=== PATIENT | male | born 1950 | race Caucasian/White ===

== ENCOUNTER 2021-06-16 09:51 | Emergency (ER) | payer MEDICARE, OTHER ==
[2021-06-16 09:58] VITALS: TEMP 97; BMI 31.6
[2021-06-16] MEDS ORDERED: FAMOTIDINE 20 MG/50 ML IVPB 20 MG/50 ML MG IVPB ONE ×2 (11:21→11:34)
[2021-06-16] MEDS ORDERED: ONDANSETRON 4 MG/2 ML VIAL IVPUSH ONE (11:21)
[2021-06-16] MEDS ORDERED: SUCRALFATE 1 GM TABLET (FP) PO ONE (11:21)
[2021-06-16] MEDS ORDERED: MAG HYDROX/AL HYDROX/SIMETH 30 ML UNIT-DOSE CUP PO ONE (11:21)
[2021-06-16] MEDS ORDERED: ONDANSETRON 4 MG/2 ML VIAL ONE (11:34)
[2021-06-16] MEDS ORDERED: SUCRALFATE 1 GM TABLET (FP) ONE (11:34)
[2021-06-16] MEDS ORDERED: MAG HYDROX/AL HYDROX/SIMETH 30 ML UNIT-DOSE CUP ONE (11:34)
[2021-06-16] MEDS ORDERED: LACTATED RINGERS SOLUTION 1000 ML INFUS.BAG IV ONE (12:17)
[2021-06-16 13:08] LABS: BASO % 0.4 % (0-2.0); EOS % 1.1 % (0-4.5); HEMATOCRIT 42.2 % (35.4-49); HEMOGLOBIN 14.3 GM/dL (11.7-16.9); LYMPH % 17.6 % (8-40); MCH 29.2 pg (25.7-33.7); MCHC 33.8 g/dl (32.0-35.9); MEAN CELL VOLUME 86.2 fl (80-96); MEAN PLT VOLUME 9.3 fl (7.5-11.1); MONO % 6.2 % (3.8-10.2); NEUT % 74.7 % (42.8-82.8); PLATELET COUNT 184 10^3/uL (134-434); RBC 4.89 M/mm3 (4.00-5.60); RDW 14.1 % (11.9-15.9); WHITE BLOOD COUNT 8.4 K/mm3 (4.0-10.0)
[2021-06-16 13:28] LABS: CHLORIDE 103 mmol/L (98-107); SODIUM 142 mmol/L (136-145)
[2021-06-16 13:31] LABS: ANION GAP 10 MMOL/L (8-16); CALCIUM 10.1 mg/dL (8.5-10.1); CO2 29 mmol/L (21-32); GLUCOSE,RANDOM 207 mg/dL (74-106); LIPASE 72 U/L (73-393)
[2021-06-16 13:33] LABS: MAGNESIUM 2.2 mg/dL (1.8-2.4)
[2021-06-16 13:34] LABS: CREATININE 2.1 mg/dL (0.55-1.3); SGOT/AST 25 U/L (15-37); SGPT/ALT 52 U/L (13-61)
[2021-06-16 13:37] LABS: ALK PHOS 56 U/L (45-117); BILIRUBIN,TOTAL 0.8 mg/dL (0.2-1); TOT PROT 8.2 g/dl (6.4-8.2)
[2021-06-16 16:26] VITALS: BP 184/81; PULSE 77
== END 2021-06-16 17:37 | disposition home or self-care (01) ==
LOC: JER 09:51
PROC: 3E033NZ Introduction of Analgesics, Hypnotics, Sedatives into Peripheral Vein, Percutaneous Approach (ICD-10-PCS; principal; 2021-06-16)
PROC: 3E033GC Introduction of Other Therapeutic Substance into Peripheral Vein, Percutaneous Approach (ICD-10-PCS; 2021-06-16)
DX: R10.13 Epigastric pain (principal); R11.2 Nausea with vomiting, unspecified
CPT/HCPCS: 36415; 71045-TC-FY; 74177-TC; 80053; 83605; 83690; 83735; 84484; 85025; 93005; 93010; 96365; 96375; 99284-25; C9803; Q9967; U0003; U0005

== ENCOUNTER 2024-02-06 00:47 | Inpatient (IN) | payer MEDICARE, OTHER ==
[2024-02-06] MEDS: SODIUM CHLORIDE 0.9% 500 ML INFUS.BAG IV ONE (02:36)
[2024-02-06 02:45] LABS: BASO % 0.7 % (0-2.0); EOS % 0.9 % (0-4.5); HEMATOCRIT 29.8 % (35.4-49); HEMOGLOBIN 9.7 GM/dL (11.7-16.9); LYMPH % 11.9 % (8-40); MCH 27.4 pg (25.7-33.7); MCHC 32.6 g/dl (32.0-35.9); MEAN PLT VOLUME 8.7 fl (7.5-11.1); MONO % 6.9 % (3.8-10.2); NEUT % 79.6 % (42.8-82.8); PLATELET COUNT 235 10^3/uL (134-434); RBC 3.55 M/mm3 (4.00-5.60); RDW 16.9 % (11.9-15.9); WHITE BLOOD COUNT 12.5 K/mm3 (4.0-10.0)
[2024-02-06 02:53] LABS: INR 1.21 (0.83-1.09); PROTHROMBIN TIME (PATIENT) 13.6 SEC (9.7-13.0)
[2024-02-06 02:55] LABS: PH,URINE 5.5 (5.0-8.0); URINE APPEARANCE CLEAR; URINE BILIRUBIN NEGATIVE (NEGATIVE); URINE COLOR YELLOW; URINE GLUCOSE (UA) 3+ (NEGATIVE); URINE KETONE NEGATIVE (NEGATIVE); URINE LEUK ESTERASE 1+ (NEGATIVE); URINE NITRITE NEGATIVE (NEGATIVE); URINE PROTEIN 1+ (NEGATIVE); URINE UROBILINOGEN 0.2 mg/dL (0.2-1.0)
[2024-02-06] MEDS ORDERED: ACETAMINOPHEN INJECTION 100 ML IVPB ONE (02:59)
[2024-02-06] MEDS ORDERED: CEFTRIAXONE 1 GM/50 ML BAG ONE (03:00)
[2024-02-06 03:03] LABS: CHLORIDE 104 mmol/L (98-107); POTASSIUM 4.5 mmol/L (3.5-5.1); SODIUM 136 mmol/L (136-145)
[2024-02-06 03:05] LABS: ALBUMIN 2.8 g/dl (3.4-5.0); CALCIUM 8.6 mg/dL (8.5-10.1)
[2024-02-06 03:06] LABS: ANION GAP 7 mmol/L (4-13); BLOOD UREA NITROGEN 30.3 mg/dL (7-18); CO2 25 mmol/L (21-32); MAGNESIUM 2.5 mg/dL (1.8-2.4)
[2024-02-06] MEDS: ACETAMINOPHEN 1000 MG/100 ML BAG IVPB ONE (03:07)
[2024-02-06 03:08] LABS: CREATININE 1.9 mg/dL (0.55-1.3); SGOT/AST 22 U/L (15-37)
[2024-02-06 03:09] LABS: SGPT/ALT 32 U/L (13-61)
[2024-02-06 03:10] LABS: BILIRUBIN,TOTAL 0.5 mg/dL (0.2-1); TOT PROT 6.5 g/dl (6.4-8.2)
[2024-02-06 03:11] LABS: ALK PHOS 97 U/L (45-117)
[2024-02-06 03:14] LABS: GLUCOSE,RANDOM 453 mg/dL (74-106)
[2024-02-06] MEDS ORDERED: INSULIN ASPART SLIDING SCALE (NOVOLOG) 1 VIAL SQ ONE ×4 (03:20→17:49)
[2024-02-06] MEDS: INSULIN REGULAR HUMAN 100 UNITS/ML *VIAL SQ ONE (03:27)
[2024-02-06 06:58] LABS: HEMATOCRIT 26.7 % (35.4-49); HEMOGLOBIN 8.7 GM/dL (11.7-16.9); MCH 27.6 pg (25.7-33.7); MCHC 32.6 g/dl (32.0-35.9); MEAN CELL VOLUME 84.5 fl (80-96); MEAN PLT VOLUME 8.7 fl (7.5-11.1); PLATELET COUNT 198 10^3/uL (134-434); RBC 3.16 M/mm3 (4.00-5.60); WHITE BLOOD COUNT 12.1 K/mm3 (4.0-10.0)
[2024-02-06 07:14] LABS: POTASSIUM 4.2 mmol/L (3.5-5.1)
[2024-02-06 07:16] LABS: CALCIUM 7.9 mg/dL (8.5-10.1)
[2024-02-06 07:17] LABS: BLOOD UREA NITROGEN 31.8 mg/dL (7-18); MAGNESIUM 2.4 mg/dL (1.8-2.4)
[2024-02-06 07:20] LABS: CREATININE 1.7 mg/dL (0.55-1.3); PHOSPHOROUS 4.3 mg/dL (2.5-4.9)
[2024-02-06] MEDS: INSULIN (NOVOLOG) ASPART 100 UNITS/ML 10ML VIAL SQ SCH (08:23)
[2024-02-06 08:28] LABS: EPI CELLS 0 /uL (0-25.1); HYALINE CASTS 0 /uL (0-3.1); URINE BACTERIA 1166 /uL (0-1359); URINE RBC 354 /uL (0-23.9); URINE WBC 513 /uL (0-25.8)
[2024-02-06 08:29] LABS: YEAST NONE SEEN (NEGATIVE)
[2024-02-06] MEDS: INSULIN (LEVEMIR) 100 UNITS/ML UNITS SQ ONE (10:40)
[2024-02-06] MEDS ORDERED: INSULIN (LEVEMIR) 100 UNITS/ML UNITS SQ ONE ×2 (10:47→10:49)
[2024-02-06] MEDS ORDERED: ENOXAPARIN NA (PORCINE) 40 MG/0.4 ML DISP.SYRIN SQ ONE (10:47)
[2024-02-06] MEDS: ENOXAPARIN NA (PORCINE) 40 MG/0.4 ML DISP.SYRIN SQ SCH (11:11)
[2024-02-06] MEDS ORDERED: ASPIRIN COATED 81 MG TABLET.EC ONE (11:55)
[2024-02-06] MEDS: ASPIRIN COATED 81 MG TABLET.EC PO SCH (11:56)
[2024-02-06] MEDS ORDERED: INSULIN (LEVEMIR) 100 UNITS/ML UNITS SQ SCH (22:00)
[2024-02-07] MEDS: ATORVASTATIN CA 40 MG TABLET (FP) PO SCH (00:29)
[2024-02-07] MEDS: INSULIN (LEVEMIR) 100 UNITS/ML UNITS SQ SCH (00:29)
[2024-02-07] MEDS: ACETAMINOPHEN 1000 MG/100 ML BAG IVPB PRN (02:07)
[2024-02-07] MEDS ORDERED: INSULIN (LEVEMIR) 100 UNITS/ML UNITS SQ SCH (07:00)
[2024-02-07 08:55] LABS: BASO % 0.3 % (0-2.0); EOS % 1.7 % (0-4.5); HEMATOCRIT 27.2 % (35.4-49); HEMOGLOBIN 8.7 GM/dL (11.7-16.9); LYMPH % 16.7 % (8-40); MCH 26.8 pg (25.7-33.7); MEAN CELL VOLUME 83.9 fl (80-96); MEAN PLT VOLUME 8.6 fl (7.5-11.1); MONO % 7.4 % (3.8-10.2); NEUT % 73.9 % (42.8-82.8); PLATELET COUNT 237 10^3/uL (134-434); RBC 3.24 M/mm3 (4.00-5.60); RDW 16.8 % (11.9-15.9); WHITE BLOOD COUNT 11.7 K/mm3 (4.0-10.0)
[2024-02-07 09:14] LABS: BLOOD UREA NITROGEN 28.9 mg/dL (7-18)
[2024-02-07 09:15] LABS: ALBUMIN 2.3 g/dl (3.4-5.0); CALCIUM 8.7 mg/dL (8.5-10.1)
[2024-02-07 09:18] LABS: CREATININE 1.7 mg/dL (0.55-1.3)
[2024-02-07 09:19] LABS: BILIRUBIN,TOTAL 0.5 mg/dL (0.2-1); TOT PROT 5.9 g/dl (6.4-8.2)
[2024-02-07] MEDS: CEFTRIAXONE 1 GM in DEXTROSE 5%-WATER - 50 ML IVPB SCH (09:55)
[2024-02-07] MEDS: LOSARTAN POTASSIUM 50 MG TABLET PO SCH (09:56)
[2024-02-07] MEDS: amLODIPine BESYLATE 5 MG TABLET (FP) PO SCH (09:56)
[2024-02-07] MEDS: HYDROCHLOROTHIAZIDE 25 MG TABLET (FP) PO SCH (09:56)
[2024-02-07] MEDS: EMPAGLIFLOZIN (JARDIANCE) 25 MG TABLET PO SCH (12:02)
[2024-02-07] MEDS ORDERED: DOCUSATE NA 100 MG/10 ML UNIT-DOSE CUPS PO PRN (13:08)
[2024-02-07] MEDS: SENNOSIDES 8.6MG TABLET (FP) PO SCH (13:37)
[2024-02-07] MEDS: POLYETHYLENE GLYCOL (HEALTHYLAX) 3350 17 GM PACKET PO SCH (13:37)
[2024-02-07] MEDS ORDERED: INSULIN ASPART SLIDING SCALE (NOVOLOG) 1 VIAL SQ ONE (18:11)
[2024-02-08] MEDS: INSULIN (LEVEMIR) 100 UNITS/ML UNITS SQ ONE (09:59)
[2024-02-08 11:29] LABS: BASO % 0.5 % (0-2.0); EOS % 2.3 % (0-4.5); HEMATOCRIT 28.3 % (35.4-49); HEMOGLOBIN 9.5 GM/dL (11.7-16.9); LYMPH % 11.4 % (8-40); MCH 27.7 pg (25.7-33.7); MCHC 33.5 g/dl (32.0-35.9); MEAN CELL VOLUME 82.7 fl (80-96); MEAN PLT VOLUME 8.6 fl (7.5-11.1); MONO % 7.5 % (3.8-10.2); NEUT % 78.3 % (42.8-82.8); PLATELET COUNT 284 10^3/uL (134-434); RBC 3.42 M/mm3 (4.00-5.60); WHITE BLOOD COUNT 10.5 K/mm3 (4.0-10.0)
[2024-02-08 11:52] LABS: ALBUMIN 2.5 g/dl (3.4-5.0); BLOOD UREA NITROGEN 25.2 mg/dL (7-18)
[2024-02-08 11:55] LABS: CREATININE 1.7 mg/dL (0.55-1.3)
[2024-02-08 11:57] LABS: BILIRUBIN,TOTAL 0.4 mg/dL (0.2-1); TOT PROT 6.6 g/dl (6.4-8.2)
[2024-02-08] MEDS: TAMSULOSIN HCL 0.4 MG CAP PO SCH (16:14)
[2024-02-08] MEDS: GABAPENTIN 300 MG CAPSULE PO PRN (16:21)
[2024-02-08 16:35] VITALS: BMI 30.2
[2024-02-08] MEDS: INSULIN (LEVEMIR) 100 UNITS/ML UNITS SQ SCH (21:00)
[2024-02-08] MEDS: MEROPENEM 1 GM in DEXTROSE 5%-WATER 100 ML IVPB SCH (21:03)
[2024-02-08] MEDS ORDERED: MEROPENEM 1 GM in DEXTROSE 5%-WATER 100 ML IVPB SCH (22:00)
[2024-02-08] MEDS: ACETAMINOPHEN 325 MG TABLET (FP) PO PRN (23:50)
[2024-02-09] MEDS: INSULIN (LEVEMIR) 100 UNITS/ML UNITS SQ SCH ×2 (06:06→21:30)
[2024-02-09 08:22] LABS: HEMATOCRIT 31.1 % (35.4-49); HEMOGLOBIN 10.2 GM/dL (11.7-16.9); MCH 27.4 pg (25.7-33.7); MCHC 32.9 g/dl (32.0-35.9); MEAN CELL VOLUME 83.1 fl (80-96); MEAN PLT VOLUME 8.8 fl (7.5-11.1); PLATELET COUNT 328 10^3/uL (134-434); RBC 3.74 M/mm3 (4.00-5.60); RDW 16.9 % (11.9-15.9); WHITE BLOOD COUNT 12.6 K/mm3 (4.0-10.0)
[2024-02-09 08:36] LABS: BLOOD UREA NITROGEN 27.7 mg/dL (7-18)
[2024-02-09 08:39] LABS: CREATININE 1.6 mg/dL (0.55-1.3)
[2024-02-09] MEDS: CLOPIDOGREL BISULFATE 75 MG TABLET (FP) PO SCH (09:52)
[2024-02-09] MEDS: PHENAZOPYRIDINE HCL 100 MG TABLET (FP) PO ONE (14:25)
[2024-02-09] MEDS: MEROPENEM 1 GM in DEXTROSE 5%-WATER 100 ML IVPB SCH (17:27)
[2024-02-09] MEDS: SODIUM CHLORIDE 1,000 ML IV STA (23:28)
[2024-02-09] MEDS ORDERED: SIMETHICONE 80 MG TAB.CHEW (FP) PO PRN (23:50)
[2024-02-10] MEDS: MINERAL OIL ENEMA 133 ML ENEMA RC ONE ×2 (05:13→05:28)
[2024-02-10 05:22] LABS: POTASSIUM 4.4 mmol/L (3.5-5.1)
[2024-02-10 05:23] LABS: CALCIUM 8.5 mg/dL (8.5-10.1)
[2024-02-10 05:24] LABS: BLOOD UREA NITROGEN 50.5 mg/dL (7-18)
[2024-02-10 18:47] LABS: HEMATOCRIT 32.8 % (35.4-49); HEMOGLOBIN 10.5 GM/dL (11.7-16.9); MEAN CELL VOLUME 84.3 fl (80-96); PLATELET COUNT 376 10^3/uL (134-434); RBC 3.89 M/mm3 (4.00-5.60); RDW 17.1 % (11.9-15.9); WHITE BLOOD COUNT 15.3 K/mm3 (4.0-10.0)
[2024-02-10 19:15] LABS: POTASSIUM 4.3 mmol/L (3.5-5.1)
[2024-02-10 19:22] LABS: ALBUMIN 2.8 g/dl (3.4-5.0); BLOOD UREA NITROGEN 52.6 mg/dL (7-18); CALCIUM 9.1 mg/dL (8.5-10.1); MAGNESIUM 3.1 mg/dL (1.8-2.4)
[2024-02-10 19:27] LABS: BILIRUBIN,TOTAL 0.4 mg/dL (0.2-1); TOT PROT 7.2 g/dl (6.4-8.2)
[2024-02-10 19:29] LABS: LACTIC ACID 2.3 mmol/L (0.4-2.0)
[2024-02-10] MEDS: DOCUSATE NA 100 MG/10 ML UNIT-DOSE CUPS PO SCH (21:55)
[2024-02-10] MEDS: SODIUM CHLORIDE 1,000 ML IV STA (23:05)
[2024-02-11] MEDS: SODIUM CHLORIDE 1,000 ML IV SCH (00:34)
[2024-02-11] MEDS: INSULIN (LEVEMIR) 100 UNITS/ML UNITS SQ SCH (06:34)
[2024-02-11 09:57] LABS: HEMATOCRIT 28.3 % (35.4-49); HEMOGLOBIN 9.1 GM/dL (11.7-16.9); MCH 27.2 pg (25.7-33.7); MCHC 32.2 g/dl (32.0-35.9); MEAN CELL VOLUME 84.4 fl (80-96); MEAN PLT VOLUME 9.1 fl (7.5-11.1); PLATELET COUNT 407 10^3/uL (134-434); RBC 3.35 M/mm3 (4.00-5.60); RDW 17.2 % (11.9-15.9); WHITE BLOOD COUNT 13.5 K/mm3 (4.0-10.0)
[2024-02-11 10:16] LABS: POTASSIUM 4.3 mmol/L (3.5-5.1)
[2024-02-11 10:32] LABS: TOT PROT 6.8 g/dl (6.4-8.2)
[2024-02-11 10:33] LABS: ALBUMIN 2.6 g/dl (3.4-5.0); CALCIUM 8.8 mg/dL (8.5-10.1)
[2024-02-11 10:34] LABS: BLOOD UREA NITROGEN 48.6 mg/dL (7-18)
[2024-02-11 10:36] LABS: CREATININE 1.9 mg/dL (0.55-1.3)
[2024-02-11 10:37] LABS: BILIRUBIN,TOTAL 0.7 mg/dL (0.2-1)
[2024-02-11] MEDS: LIDOCAINE 5% TOPICAL PATCH TP SCH (13:58)
[2024-02-11] MEDS ORDERED: INSULIN ASPART SLIDING SCALE (NOVOLOG) 1 VIAL SQ ONE (17:44)
[2024-02-11] MEDS: LIDOCAINE PATCH REMOVAL MC SCH (22:44)
[2024-02-12 10:13] LABS: HEMATOCRIT 28.2 % (35.4-49); HEMOGLOBIN 9.2 GM/dL (11.7-16.9); MCH 27.7 pg (25.7-33.7); MCHC 32.7 g/dl (32.0-35.9); MEAN CELL VOLUME 84.7 fl (80-96); MEAN PLT VOLUME 9.1 fl (7.5-11.1); PLATELET COUNT 389 10^3/uL (134-434); RBC 3.33 M/mm3 (4.00-5.60); RDW 17.4 % (11.9-15.9); WHITE BLOOD COUNT 10.8 K/mm3 (4.0-10.0)
[2024-02-12 10:36] LABS: POTASSIUM 4.1 mmol/L (3.5-5.1)
[2024-02-12 10:40] LABS: BLOOD UREA NITROGEN 37.2 mg/dL (7-18); CALCIUM 9.2 mg/dL (8.5-10.1)
[2024-02-12 10:41] LABS: ALBUMIN 2.7 g/dl (3.4-5.0)
[2024-02-12 10:44] LABS: CREATININE 1.6 mg/dL (0.55-1.3)
[2024-02-12 10:45] LABS: BILIRUBIN,TOTAL 0.6 mg/dL (0.2-1); TOT PROT 7.1 g/dl (6.4-8.2)
[2024-02-12] MEDS: ERTAPENEM SODIUM 1 GM in SODIUM CHLORIDE 50 ML IVPB SCH (18:06)
[2024-02-13 09:24] LABS: CHLORIDE 112 mmol/L (98-107); HEMATOCRIT 20.7 % (35.4-49); MCH 26.9 pg (25.7-33.7); MCHC 32.2 g/dl (32.0-35.9); MEAN CELL VOLUME 83.5 fl (80-96); MEAN PLT VOLUME 8.8 fl (7.5-11.1); PLATELET COUNT 373 10^3/uL (134-434); POTASSIUM 5.3 mmol/L (3.5-5.1); RBC 2.48 M/mm3 (4.00-5.60); RDW 17.2 % (11.9-15.9); SODIUM 145 mmol/L (136-145); WHITE BLOOD COUNT 9.3 K/mm3 (4.0-10.0)
[2024-02-13 09:29] LABS: CALCIUM 8.3 mg/dL (8.5-10.1)
[2024-02-13 09:30] LABS: ANION GAP 7 mmol/L (4-13); CO2 26 mmol/L (21-32)
[2024-02-13 09:33] LABS: CREATININE 1.6 mg/dL (0.55-1.3); SGOT/AST 31 U/L (15-37); SGPT/ALT 38 U/L (13-61)
[2024-02-13 09:34] LABS: BILIRUBIN,TOTAL 0.3 mg/dL (0.2-1); TOT PROT 5.6 g/dl (6.4-8.2)
[2024-02-13 09:35] LABS: ALK PHOS 88 U/L (45-117)
[2024-02-13 09:38] LABS: HEMOGLOBIN 6.6 GM/dL (11.7-16.9)
[2024-02-13 10:11] LABS: ALBUMIN 2.1 g/dl (3.4-5.0); BLOOD UREA NITROGEN 62.4 mg/dL (7-18); GLUCOSE,RANDOM 442 mg/dL (74-106)
[2024-02-13] MEDS ORDERED: INSULIN ASPART SLIDING SCALE (NOVOLOG) 1 VIAL SQ SCH (11:22)
[2024-02-13] MEDS: ESCITALOPRAM OXALATE 10 MG TABLET PO SCH (11:23)
[2024-02-13] MEDS: INSULIN (NOVOLOG) ASPART 100 UNITS/ML 10ML VIAL SQ SCH (11:39)
[2024-02-13] MEDS: INSULIN ASPART SLIDING SCALE (NOVOLOG) 1 VIAL SQ SCH ×2 (11:40→21:53)
[2024-02-13 12:54] LABS: BASO % 0.2 % (0-2.0); EOS % 0.5 % (0-4.5); HEMATOCRIT 19.4 % (35.4-49); LYMPH % 12.9 % (8-40); MCH 27.5 pg (25.7-33.7); MCHC 33.1 g/dl (32.0-35.9); MEAN PLT VOLUME 8.9 fl (7.5-11.1); MONO % 6.3 % (3.8-10.2); NEUT % 80.1 % (42.8-82.8); PLATELET COUNT 374 10^3/uL (134-434); RBC 2.34 M/mm3 (4.00-5.60); RDW 17.6 % (11.9-15.9); WHITE BLOOD COUNT 10.1 K/mm3 (4.0-10.0)
[2024-02-13 13:08] LABS: HEMOGLOBIN 6.4 GM/dL (11.7-16.9)
[2024-02-13 13:23] LABS: RETICULOCYTES 3.38 % (0.5-1.5)
[2024-02-13 13:29] LABS: CHLORIDE 111 mmol/L (98-107); POTASSIUM 5.2 mmol/L (3.5-5.1); SODIUM 144 mmol/L (136-145)
[2024-02-13 13:30] LABS: CALCIUM 8.2 mg/dL (8.5-10.1)
[2024-02-13 13:31] LABS: ANION GAP 9 mmol/L (4-13); BLOOD UREA NITROGEN 63.6 mg/dL (7-18); CO2 24 mmol/L (21-32)
[2024-02-13 13:34] LABS: CREATININE 1.7 mg/dL (0.55-1.3)
[2024-02-13 13:35] LABS: IRON SERUM 56 ug/dL (50-175); LDH 143 U/L (87-246); TOTAL IRON BINDING CAPACITY 190 ug/dL (250-450)
[2024-02-13 13:40] LABS: GLUCOSE,RANDOM 431 mg/dL (74-106)
[2024-02-13] MEDS: ONDANSETRON 4 MG/2 ML VIAL IVPUSH PRN (19:37)
[2024-02-13] MEDS: PANTOPRAZOLE SODIUM 40 MG VIAL IVPUSH SCH (21:52)
[2024-02-13] MEDS: ACETAMINOPHEN 500 MG TABLET (FP) PO ONE (22:30)
[2024-02-13] MEDS: INSULIN (LEVEMIR) 100 UNITS/ML UNITS SQ SCH (22:31)
[2024-02-13] MEDS: ACETAMINOPHEN 1000 MG/100 ML BAG IVPB ONE (22:41)
[2024-02-14] MEDS: SODIUM CHLORIDE 500 ML IV STA (05:57)
[2024-02-14 09:50] LABS: POTASSIUM 4.5 mmol/L (3.5-5.1)
[2024-02-14 09:53] LABS: CALCIUM 8.4 mg/dL (8.5-10.1)
[2024-02-14 09:54] LABS: BLOOD UREA NITROGEN 72.4 mg/dL (7-18); MAGNESIUM 3.1 mg/dL (1.8-2.4)
[2024-02-14 09:57] LABS: CREATININE 2.4 mg/dL (0.55-1.3); PHOSPHOROUS 4.6 mg/dL (2.5-4.9)
[2024-02-14] MEDS: LACTATED RINGERS SOLUTION 1,000 ML/1,000 ML INFUS.BAG IV SCH (11:42)
[2024-02-14 12:34] LABS: BASO % 1.1 % (0-2.0); HEMATOCRIT 18.4 % (35.4-49); LYMPH % 17.5 % (8-40); MCH 26.5 pg (25.7-33.7); MCHC 31.4 g/dl (32.0-35.9); MEAN CELL VOLUME 84.4 fl (80-96); MEAN PLT VOLUME 9.1 fl (7.5-11.1); MONO % 6.5 % (3.8-10.2); NEUT % 73.9 % (42.8-82.8); PLATELET COUNT 376 10^3/uL (134-434); RBC 2.18 M/mm3 (4.00-5.60); RDW 17.7 % (11.9-15.9); WHITE BLOOD COUNT 12.3 K/mm3 (4.0-10.0)
[2024-02-14 12:41] LABS: INR 1.13 (0.83-1.09); PROTHROMBIN TIME (PATIENT) 12.9 SEC (9.7-13.0)
[2024-02-14 12:46] LABS: HEMOGLOBIN 5.8 GM/dL (11.7-16.9)
[2024-02-14 12:54] LABS: POTASSIUM 4.5 mmol/L (3.5-5.1)
[2024-02-14 12:55] LABS: CALCIUM 8.4 mg/dL (8.5-10.1)
[2024-02-14 12:59] LABS: CREATININE 2.4 mg/dL (0.55-1.3)
[2024-02-14] MEDS ORDERED: SIMETHICONE 80 MG TAB.CHEW (FP) PO PRN (18:21)
[2024-02-14] MEDS: IRON SUCROSE INJECTION 200 MG in SODIUM CHLORIDE 100 ML IVPB ONE (18:42)
[2024-02-14] MEDS: POLYETHYLENE GLYCOL (HEALTHYLAX) 3350 17 GM PACKET PO SCH (21:07)
[2024-02-14] MEDS: LIDOCAINE PATCH REMOVAL MC SCH (21:08)
[2024-02-14] MEDS: ATORVASTATIN CA 40 MG TABLET (FP) PO SCH (21:08)
[2024-02-14] MEDS: DOCUSATE NA 100 MG/10 ML UNIT-DOSE CUPS PO SCH (21:08)
[2024-02-15] MEDS: INSULIN (LEVEMIR) 100 UNITS/ML UNITS SQ SCH (06:32)
[2024-02-15 08:20] LABS: BASO % 0.7 % (0-2.0); EOS % 3.3 % (0-4.5); HEMATOCRIT 27.5 % (35.4-49); LYMPH % 15.9 % (8-40); MCH 28.2 pg (25.7-33.7); MCHC 32.7 g/dl (32.0-35.9); MEAN CELL VOLUME 86.1 fl (80-96); MONO % 7.4 % (3.8-10.2); NEUT % 72.7 % (42.8-82.8); PLATELET COUNT 350 10^3/uL (134-434); RBC 3.19 M/mm3 (4.00-5.60); RDW 16.5 % (11.9-15.9); WHITE BLOOD COUNT 12.2 K/mm3 (4.0-10.0)
[2024-02-15 09:15] LABS: POTASSIUM 4.8 mmol/L (3.5-5.1)
[2024-02-15 09:27] LABS: BILIRUBIN,TOTAL 0.4 mg/dL (0.2-1); TOT PROT 6.2 g/dl (6.4-8.2)
[2024-02-15 09:28] LABS: PHOSPHOROUS 4.6 mg/dL (2.5-4.9)
[2024-02-15 09:30] LABS: CALCIUM 8.8 mg/dL (8.5-10.1); MAGNESIUM 3.3 mg/dL (1.8-2.4)
[2024-02-15 09:33] LABS: CREATININE 1.8 mg/dL (0.55-1.3)
[2024-02-15 09:34] LABS: ALBUMIN 2.5 g/dl (3.4-5.0)
[2024-02-15] MEDS ORDERED: LOSARTAN POTASSIUM 50 MG TABLET PO SCH (10:00)
[2024-02-15] MEDS ORDERED: amLODIPine BESYLATE 5 MG TABLET (FP) PO SCH (10:00)
[2024-02-15] MEDS: EMPAGLIFLOZIN (JARDIANCE) 25 MG TABLET PO SCH (10:37)
[2024-02-15] MEDS: LIDOCAINE 5% TOPICAL PATCH TP SCH (10:37)
[2024-02-15] MEDS: TAMSULOSIN HCL 0.4 MG CAP PO SCH (10:38)
[2024-02-15] MEDS: ESCITALOPRAM OXALATE 10 MG TABLET PO SCH (10:38)
[2024-02-15] MEDS: ERTAPENEM SODIUM 1 GM in SODIUM CHLORIDE 50 ML IVPB SCH (10:39)
[2024-02-15] MEDS: AMINO ACIDS 4.25%/D5W 1,000 ML IV SCH (12:45)
[2024-02-15] MEDS: DEXTROSE 5%-WATER - 1,000 ML IV SCH (15:33)
[2024-02-15] MEDS: LACTATED RINGERS SOLUTION 1,000 ML/1,000 ML INFUS.BAG IV SCH (15:34)
[2024-02-16] MEDS ORDERED: INSULIN ASPART SLIDING SCALE (NOVOLOG) 1 VIAL SQ ONE (06:42)
[2024-02-16] MEDS ORDERED: INSULIN (LEVEMIR) 100 UNITS/ML UNITS SQ ONE (06:42)
[2024-02-16 11:51] LABS: HEMATOCRIT 27.9 % (35.4-49); HEMOGLOBIN 9.1 GM/dL (11.7-16.9); MCH 28.1 pg (25.7-33.7); MCHC 32.6 g/dl (32.0-35.9); MEAN CELL VOLUME 86.2 fl (80-96); MEAN PLT VOLUME 8.9 fl (7.5-11.1); PLATELET COUNT 390 10^3/uL (134-434); RBC 3.23 M/mm3 (4.00-5.60); RDW 17.3 % (11.9-15.9); WHITE BLOOD COUNT 10.3 K/mm3 (4.0-10.0)
[2024-02-16 12:15] LABS: POTASSIUM 4.1 mmol/L (3.5-5.1)
[2024-02-16 12:18] LABS: CALCIUM 8.7 mg/dL (8.5-10.1)
[2024-02-16 12:19] LABS: ALBUMIN 2.6 g/dl (3.4-5.0); BLOOD UREA NITROGEN 35.4 mg/dL (7-18)
[2024-02-16 12:21] LABS: CREATININE 1.8 mg/dL (0.55-1.3)
[2024-02-16 12:23] LABS: BILIRUBIN,TOTAL 0.3 mg/dL (0.2-1); TOT PROT 6.2 g/dl (6.4-8.2)
[2024-02-16] MEDS ORDERED: BISACODYL 5 MG TABLET.DR (FP) PO ONE (16:00)
[2024-02-16] MEDS: INSULIN (NOVOLOG) ASPART 100 UNITS/ML 10ML VIAL SQ ONE (17:53)
[2024-02-16] MEDS ORDERED: POLYETHYLENE GLYCOL 3350 255 GM BTL PO ONE (18:00)
[2024-02-16] MEDS: AMINO ACIDS 4.25%/D5W 1,000 ML IV SCH (18:53)
[2024-02-16] MEDS: AMINO ACIDS/PROTEIN HYDROLYS 30 ML LIQUID.PKT PO SCH (18:54)
[2024-02-16] MEDS: INSULIN (LEVEMIR) 100 UNITS/ML UNITS SQ SCH (22:16)
[2024-02-17] MEDS: INSULIN (LEVEMIR) 100 UNITS/ML UNITS SQ SCH (06:27)
[2024-02-17] MEDS ORDERED: INSULIN ASPART SLIDING SCALE (NOVOLOG) 1 VIAL SQ ONE (06:44)
[2024-02-17] MEDS ORDERED: INSULIN (LEVEMIR) 100 UNITS/ML UNITS SQ ONE (06:44)
[2024-02-17 07:50] LABS: HEMATOCRIT 31.1 % (35.4-49); MCH 28.2 pg (25.7-33.7); MCHC 32.2 g/dl (32.0-35.9); MEAN CELL VOLUME 87.6 fl (80-96); MEAN PLT VOLUME 8.9 fl (7.5-11.1); PLATELET COUNT 430 10^3/uL (134-434); RBC 3.55 M/mm3 (4.00-5.60); RDW 17.6 % (11.9-15.9); WHITE BLOOD COUNT 9.9 K/mm3 (4.0-10.0)
[2024-02-17 08:06] LABS: POTASSIUM 4.3 mmol/L (3.5-5.1)
[2024-02-17 08:11] LABS: CALCIUM 9.2 mg/dL (8.5-10.1)
[2024-02-17 08:13] LABS: ALBUMIN 2.9 g/dl (3.4-5.0); BLOOD UREA NITROGEN 33.3 mg/dL (7-18)
[2024-02-17 08:15] LABS: CREATININE 1.8 mg/dL (0.55-1.3)
[2024-02-17 08:17] LABS: BILIRUBIN,TOTAL 0.4 mg/dL (0.2-1); TOT PROT 7.2 g/dl (6.4-8.2)
[2024-02-17] MEDS: DEXTROSE 5%-WATER - 1,000 ML IV SCH (10:33)
[2024-02-17] MEDS: LACTULOSE 20 GM/30 ML UDC (FOR ORAL USE ONLY) PO SCH (10:35)
[2024-02-17] MEDS: BISACODYL 5 MG TABLET.DR (FP) PO SCH (10:35)
[2024-02-17] MEDS ORDERED: BISACODYL 5 MG TABLET.DR (FP) PO ONE (14:00)
[2024-02-17] MEDS ORDERED: POLYETHYLENE GLYCOL 3350 255 GM BTL PO ONE (16:00)
[2024-02-17] MEDS: ACETAMINOPHEN 325 MG TABLET (FP) PO PRN (16:12)
[2024-02-17] MEDS: AMINO ACIDS 4.25%/D5W 1,000 ML IV SCH (17:51)
[2024-02-18 07:35] LABS: HEMATOCRIT 30.4 % (35.4-49); HEMOGLOBIN 9.6 GM/dL (11.7-16.9); MCH 27.8 pg (25.7-33.7); MCHC 31.6 g/dl (32.0-35.9); MEAN CELL VOLUME 88.1 fl (80-96); MEAN PLT VOLUME 8.7 fl (7.5-11.1); PLATELET COUNT 409 10^3/uL (134-434); RBC 3.45 M/mm3 (4.00-5.60); RDW 17.3 % (11.9-15.9); WHITE BLOOD COUNT 11.2 K/mm3 (4.0-10.0)
[2024-02-18 07:50] LABS: POTASSIUM 3.8 mmol/L (3.5-5.1)
[2024-02-18] MEDS: AMINO ACIDS 4.25%/D5W 1,000 ML IV SCH (07:51)
[2024-02-18 07:57] LABS: ALBUMIN 2.6 g/dl (3.4-5.0); BLOOD UREA NITROGEN 29.5 mg/dL (7-18); CALCIUM 8.8 mg/dL (8.5-10.1)
[2024-02-18 07:58] LABS: CREATININE 1.6 mg/dL (0.55-1.3)
[2024-02-18 07:59] LABS: BILIRUBIN,TOTAL 0.3 mg/dL (0.2-1); TOT PROT 6.5 g/dl (6.4-8.2)
[2024-02-18] MEDS: MINERAL OIL ENEMA 133 ML ENEMA RC ONE ×2 (08:01)
[2024-02-18] MEDS ORDERED: FENTANYL CITRATE/PF 50 MCG/ML VIAL ONE (13:35)
[2024-02-18] MEDS: MINERAL OIL/PET HY-PHL TOPICAL OINTMENT 454 GM JAR TP SCH (19:56)
[2024-02-18 20:34] LABS: POTASSIUM 4.2 mmol/L (3.5-5.1)
[2024-02-18 20:35] LABS: BLOOD UREA NITROGEN 30.4 mg/dL (7-18); CALCIUM 9.2 mg/dL (8.5-10.1)
[2024-02-18 20:40] LABS: CREATININE 1.8 mg/dL (0.55-1.3)
[2024-02-18] MEDS: INSULIN (NOVOLOG) ASPART 100 UNITS/ML 10ML VIAL SQ ONE (23:53)
[2024-02-19 08:06] LABS: HEMATOCRIT 28.3 % (35.4-49); HEMOGLOBIN 9.2 GM/dL (11.7-16.9); MCHC 32.3 g/dl (32.0-35.9); MEAN CELL VOLUME 89.7 fl (80-96); MEAN PLT VOLUME 8.8 fl (7.5-11.1); PLATELET COUNT 357 10^3/uL (134-434); RBC 3.16 M/mm3 (4.00-5.60); RDW 17.8 % (11.9-15.9); WHITE BLOOD COUNT 9.8 K/mm3 (4.0-10.0)
[2024-02-19 08:30] LABS: POTASSIUM 3.7 mmol/L (3.5-5.1)
[2024-02-19 08:39] LABS: CALCIUM 8.9 mg/dL (8.5-10.1)
[2024-02-19 08:40] LABS: ALBUMIN 2.5 g/dl (3.4-5.0); BLOOD UREA NITROGEN 33.1 mg/dL (7-18)
[2024-02-19 08:43] LABS: CREATININE 1.8 mg/dL (0.55-1.3)
[2024-02-19 08:44] LABS: BILIRUBIN,TOTAL 0.4 mg/dL (0.2-1); TOT PROT 6.3 g/dl (6.4-8.2)
[2024-02-19] MEDS: IRON SUCROSE INJECTION 200 MG in SODIUM CHLORIDE 100 ML IVPB ONE (15:21)
[2024-02-19] MEDS: FLUCONAZOLE 100 MG TABLET (UD) PO ONE (18:53)
[2024-02-19] MEDS: POLYETHYLENE GLYCOL (HEALTHYLAX) 3350 17 GM PACKET PO SCH (22:01)
[2024-02-19 23:24] VITALS: BP 139/62; PULSE 81; RESP 17; TEMP 98
[2024-02-20] MEDS ORDERED: FLUCONAZOLE 100 MG TABLET (UD) PO SCH (10:00)
== END 2024-02-19 23:30 | DRG 65 ==
LOC: JER 00:47 → JERBED 04:19 → J5S 23:24 → J8W 02-11 01:14 → J4S 02-13 14:00
PROVIDERS: ADMIT Internal Medicine; ATTEND Student in an Organized Health Care Education/Training Program
PROC: 30233N1 Transfusion of Nonautologous Red Blood Cells into Peripheral Vein, Percutaneous Approach (ICD-10-PCS; 2024-02-13)
PROC: 0DB58ZX Excision of Esophagus, Via Natural or Artificial Opening Endoscopic, Diagnostic (ICD-10-PCS; principal; 2024-02-18 14:30)
DX: I63.9 Cerebral infarction, unspecified (principal); B37.81 Candidal esophagitis; N39.0 Urinary tract infection, site not specified; I69.351 Hemiplegia and hemiparesis following cerebral infarction affecting right dominant side; E87.20 Acidosis, unspecified; D62 Acute posthemorrhagic anemia; E87.0 Hyperosmolality and hypernatremia; N17.9 Acute kidney failure, unspecified; Z16.12 Extended spectrum beta lactamase (ESBL) resistance; E11.65 Type 2 diabetes mellitus with hyperglycemia; I12.9 Hypertensive chronic kidney disease with stage 1 through stage 4 chronic kidney disease, or unspecified chronic kidney disease; E78.5 Hyperlipidemia, unspecified; R33.9 Retention of urine, unspecified; N40.1 Benign prostatic hyperplasia with lower urinary tract symptoms; N18.9 Chronic kidney disease, unspecified; K56.41 Fecal impaction; B96.20 Unspecified Escherichia coli [E. coli] as the cause of diseases classified elsewhere; R74.01 Elevation of levels of liver transaminase levels
CPT/HCPCS: 36415; 36430; 70450-TC; 70551-TC; 71045-TC-FY; 74176-TC; 74230-TC-FY; 80048; 80053; 80061; 81003; 82272; 82570; 82728; 82962; 83010; 83036; 83540; 83550; 83605; 83615; 83735; 83880; 83935; 84100; 84133; 84300; 84466; 84484; 85025; 85027; 85045; 85379; 85610; 86850; 86900; 86901; 86922; 87040; 87086; 87186; 87635; 88305-TC; 92611-GN; 93005; 93010; 93880-TC; 93971; 97116-GP; 97162-GP; 99285-25; J0131; J1756; P9058

== ENCOUNTER 2024-02-27 14:02 | Emergency (ER) | payer MEDICARE, OTHER ==
[2024-02-27 14:27] VITALS: BMI 25.8
[2024-02-28 00:11] VITALS: RESP 18; TEMP 98.5
[2024-02-28 03:11] VITALS: BP 129/78; PULSE 88
== END 2024-02-28 03:41 ==
LOC: JER 14:02
DX: R41.0 Disorientation, unspecified (principal); W06.XXXA Fall from bed, initial encounter
CPT/HCPCS: 70450-TC; 99284-25

== ENCOUNTER 2024-09-14 17:53 | Inpatient (IN) | payer OTHER ==
[2024-09-14] MEDS: SODIUM CHLORIDE 0.9% 500 ML INFUS.BAG IV ONE ×2 (19:59→21:52)
[2024-09-14] MEDS: ACETAMINOPHEN 1000 MG/100 ML BAG IVPB ONE (19:59)
[2024-09-14] MEDS: PIPERACILLIN/TAZOB 3.375 GM 3.375 GM in DEXTROSE 5%-WATER - 50 ML IVPB ONE (20:00)
[2024-09-14] MEDS ORDERED: ACETAMINOPHEN INJECTION 100 ML ONE (20:01)
[2024-09-14] MEDS ORDERED: PIPERACILLIN/TAZOB 3.375 GM 3.375 GM/50 ML BAG IVPB ONE (20:02)
[2024-09-14 20:11] LABS: BASO % 0.4 % (0-2.0); EOS % 0.7 % (0-4.5); HEMATOCRIT 33.1 % (35.4-49); HEMOGLOBIN 10.6 GM/dL (11.7-16.9); LYMPH % 7.6 % (8-40); MCH 26.7 pg (25.7-33.7); MEAN CELL VOLUME 83.7 fl (80-96); MEAN PLT VOLUME 8.9 fl (7.5-11.1); MONO % 7.1 % (3.8-10.2); NEUT % 84.2 % (42.8-82.8); PLATELET COUNT 319 10^3/uL (134-434); RBC 3.96 M/mm3 (4.00-5.60); RDW 14.8 % (11.9-15.9)
[2024-09-14 20:18] LABS: INR 1.15 (0.83-1.09); PROTHROMBIN TIME (PATIENT) 13.2 SEC (9.7-13.0)
[2024-09-14 20:37] LABS: CHLORIDE 100 mmol/L (98-107); POTASSIUM 4.5 mmol/L (3.5-5.1); SODIUM 133 mmol/L (136-145)
[2024-09-14 20:41] LABS: CALCIUM 9.1 mg/dL (8.5-10.1); MAGNESIUM 2.4 mg/dL (1.8-2.4)
[2024-09-14 20:42] LABS: ALBUMIN 2.6 g/dl (3.4-5.0); ANION GAP 7 mmol/L (4-13); BLOOD UREA NITROGEN 35.9 mg/dL (7-18); CO2 26 mmol/L (21-32)
[2024-09-14 20:44] LABS: CREATININE 2.2 mg/dL (0.55-1.3); SGOT/AST 104 U/L (15-37); SGPT/ALT 124 U/L (13-61)
[2024-09-14 20:47] LABS: BILIRUBIN,TOTAL 0.3 mg/dL (0.2-1); TOT PROT 7.4 g/dl (6.4-8.2)
[2024-09-14 20:48] LABS: ALK PHOS 256 U/L (45-117)
[2024-09-14 20:51] LABS: GLUCOSE,RANDOM 524 mg/dL (74-106)
[2024-09-14] MEDS: CLINDAMYCIN 900 MG PREMIX IVPB 900 MG/50 ML BAG IVPB ONE (20:55)
[2024-09-14] MEDS: INSULIN REGULAR HUMAN 100 UNITS/ML *VIAL IVPUSH ONE (20:55)
[2024-09-14] MEDS ORDERED: INSULIN REGULAR HUMAN 100 UNITS/ML *VIAL ONE (20:56)
[2024-09-14 21:26] LABS: ERYTHROCYTE SEDIMENTATION RATE 94 mm/hr (0-20)
[2024-09-14] MEDS: VANCOMYCIN 1,000 MG in DEXTROSE 5%-WATER - 250 ML IVPB ONE (21:52)
[2024-09-14 21:57] LABS: ARTERIAL BLOOD GAS BASE EXCESS -2.6 mmol/L (-2-2); ARTERIAL BLOOD GAS PO2 94.3 mmHg (80-100); ARTERIAL BLOOD GAS pH 7.368 (7.350-7.450)
[2024-09-14] MEDS ORDERED: VANCOMYCIN 1 GM PREMIX (F) 1 GM/200 ML BAG ONE (21:58)
[2024-09-14] MEDS ORDERED: GABAPENTIN 300 MG CAPSULE PO PRN (23:18)
[2024-09-15] MEDS: morphine CARPU-JECT 4 MG/1 ML DISP.SYRIN IVPUSH ONE (00:07)
[2024-09-15] MEDS: SODIUM CHLORIDE 1,000 ML IV STA ×2 (00:08→00:44)
[2024-09-15] MEDS ORDERED: morphine SULFATE 4 MG/ML VIAL ONE ×2 (00:08→00:13)
[2024-09-15] MEDS ORDERED: MEROPENEM 1 GM in DEXTROSE 5%-WATER 100 ML IVPB SCH (04:00)
[2024-09-15] MEDS ORDERED: HEPARIN NA (PORCINE) 5,000 UNITS/ML 1ML VIAL ONE (04:10)
[2024-09-15] MEDS ORDERED: MEROPENEM-0.9% SODIUM CHLORIDE 1 GM/50 ML BAG IVPB ONE (04:11)
[2024-09-15] MEDS: MEROPENEM-0.9% SODIUM CHLORIDE 1 GM/50 ML BAG IVPB SCH ×2 (04:36→18:26)
[2024-09-15] MEDS: HEPARIN NA (PORCINE) 5,000 UNITS/ML 1ML VIAL SQ SCH ×2 (05:16→14:56)
[2024-09-15] MEDS ORDERED: MORPHINE SULFATE 2 MG/ML SYRINGE ONE (05:17)
[2024-09-15] MEDS: morphine CARPU-JECT 2 MG/1 ML DISP.SYRIN IVPUSH PRN (05:22)
[2024-09-15] MEDS: CLINDAMYCIN 900 MG PREMIX IVPB 900 MG/50 ML BAG IVPB SCH ×2 (06:07→17:13)
[2024-09-15 06:21] LABS: BASO % 0.2 % (0-2.0); EOS % 0.8 % (0-4.5); HEMATOCRIT 33.4 % (35.4-49); HEMOGLOBIN 10.5 GM/dL (11.7-16.9); MCHC 31.6 g/dl (32.0-35.9); MEAN CELL VOLUME 85.6 fl (80-96); MEAN PLT VOLUME 8.6 fl (7.5-11.1); MONO % 8.6 % (3.8-10.2); NEUT % 82.4 % (42.8-82.8); PLATELET COUNT 320 10^3/uL (134-434); RDW 14.6 % (11.9-15.9); WHITE BLOOD COUNT 15.9 K/mm3 (4.0-10.0)
[2024-09-15 06:29] LABS: PH,URINE 5.5 (5.0-8.0); URINE APPEARANCE CLEAR; URINE BILIRUBIN NEGATIVE (NEGATIVE); URINE COLOR YELLOW; URINE GLUCOSE (UA) 3+ (NEGATIVE); URINE KETONE TRACE (NEGATIVE); URINE LEUK ESTERASE 2+ (NEGATIVE); URINE NITRITE NEGATIVE (NEGATIVE); URINE PROTEIN TRACE (NEGATIVE); URINE UROBILINOGEN 0.2 mg/dL (0.2-1.0)
[2024-09-15 06:39] LABS: CHLORIDE 110 mmol/L (98-107); SODIUM 141 mmol/L (136-145)
[2024-09-15 06:41] LABS: CALCIUM 8.7 mg/dL (8.5-10.1)
[2024-09-15 06:42] LABS: ALBUMIN 2.4 g/dl (3.4-5.0); ANION GAP 5 mmol/L (4-13); CO2 26 mmol/L (21-32); MAGNESIUM 2.3 mg/dL (1.8-2.4)
[2024-09-15 06:45] LABS: CREATININE 2.2 mg/dL (0.55-1.3); IRON SERUM 15 ug/dL (50-175); SGOT/AST 112 U/L (15-37); SGPT/ALT 125 U/L (13-61); TOTAL IRON BINDING CAPACITY 180 ug/dL (250-450)
[2024-09-15 06:46] LABS: BILIRUBIN,TOTAL 0.4 mg/dL (0.2-1)
[2024-09-15 06:47] LABS: TOT PROT 6.6 g/dl (6.4-8.2)
[2024-09-15 06:48] LABS: ALK PHOS 248 U/L (45-117)
[2024-09-15] MEDS ORDERED: INSULIN ASPART SLIDING SCALE (NOVOLOG) 1 VIAL SQ SCH (07:00)
[2024-09-15 07:06] LABS: GLUCOSE,RANDOM 496 mg/dL (74-106)
[2024-09-15 07:58] LABS: EPI CELLS 0.2 /uL (0-25.1); HYALINE CASTS 0.96 /uL (0-3.1); URINE BACTERIA 51.9 /uL (0-1359); URINE RBC 24.6 /uL (0-23.9); URINE WBC 868.7 /uL (0-25.8)
[2024-09-15] MEDS ORDERED: ACETAMINOPHEN INJECTION 100 ML ONE (09:30)
[2024-09-15] MEDS: MEROPENEM 1 GM VIAL (RESTRICTED TO ID) IVPB ONE (09:30)
[2024-09-15] MEDS: CLINDAMYCIN PHOSPHATE 900 MG/6 ML VIAL IVPB ONE (09:30)
[2024-09-15] MEDS ORDERED: CLINDAMYCIN PHOSPHATE 600 MG/4 ML VIAL ONE (09:31)
[2024-09-15] MEDS ORDERED: LIDOCAINE HCL/PF 2% SDV 5ML VIAL ONE (09:37)
[2024-09-15] MEDS ORDERED: BUPIVACAINE HCL/PF 0.5% (5MG/ML) 10 ML VIAL ONE (09:37)
[2024-09-15] MEDS ORDERED: LOSARTAN POTASSIUM 50 MG TABLET PO SCH (10:00)
[2024-09-15] MEDS ORDERED: amLODIPine BESYLATE 5 MG TABLET (FP) PO SCH (10:00)
[2024-09-15] MEDS ORDERED: INSULIN REGULAR HUMAN 100 UNITS/ML *VIAL IVPUSH ONE (10:00)
[2024-09-15] MEDS ORDERED: VANCOMYCIN 1,000 MG in DEXTROSE 5%-WATER - 250 ML IVPB SCH (10:00)
[2024-09-15] MEDS ORDERED: INSULIN (LEVEMIR) 100 UNITS/ML UNITS SQ SCH ×2 (10:00→22:00)
[2024-09-15] MEDS ORDERED: MIDAZOLAM HCL 2 MG/2 ML SINGLE DOSE VIAL ONE (10:09)
[2024-09-15] MEDS ORDERED: INSULIN (NOVOLOG) ASPART 100 UNITS/ML 10ML VIAL ONE (10:54)
[2024-09-15] MEDS: INSULIN REGULAR HUMAN 100 UNITS/ML *VIAL IVPUSH ONE (11:00)
[2024-09-15] MEDS: INSULIN (LEVEMIR) 100 UNITS/ML UNITS SQ ONE (12:40)
[2024-09-15] MEDS: LACTATED RINGERS SOLUTION 1,000 ML IV SCH (14:58)
[2024-09-15 15:29] VITALS: BMI 31.1
[2024-09-15] MEDS: INSULIN ASPART SLIDING SCALE (NOVOLOG) 1 VIAL SQ SCH (17:13)
[2024-09-15] MEDS: GABAPENTIN 300 MG CAPSULE PO PRN (18:24)
[2024-09-15] MEDS: VANCOMYCIN/WATER 1250 MG 1,250 MG/250 ML BAG IVPB SCH (21:44)
[2024-09-15] MEDS: ATORVASTATIN CA 40 MG TABLET (FP) PO SCH (21:45)
[2024-09-15] MEDS ORDERED: ATORVASTATIN CA 40 MG TABLET (FP) PO SCH (22:00)
[2024-09-15] MEDS ORDERED: VANCOMYCIN 1,250 MG in DEXTROSE 5%-WATER - 250 ML IVPB SCH (22:00)
[2024-09-15] MEDS ORDERED: VANCOMYCIN/WATER 1250 MG 1,250 MG/250 ML BAG IVPB SCH (22:00)
[2024-09-15] MEDS: INSULIN (LEVEMIR) 100 UNITS/ML UNITS SQ SCH (22:10)
[2024-09-16] MEDS: LOSARTAN POTASSIUM 50 MG TABLET PO SCH (09:07)
[2024-09-16] MEDS: amLODIPine BESYLATE 5 MG TABLET (FP) PO SCH (09:08)
[2024-09-16 09:28] LABS: BASO % 0.7 % (0-2.0); EOS % 1.7 % (0-4.5); HEMATOCRIT 31.9 % (35.4-49); LYMPH % 13.8 % (8-40); MCH 26.6 pg (25.7-33.7); MCHC 31.4 g/dl (32.0-35.9); MEAN CELL VOLUME 84.7 fl (80-96); MONO % 6.2 % (3.8-10.2); NEUT % 77.6 % (42.8-82.8); PLATELET COUNT 340 10^3/uL (134-434); RBC 3.77 M/mm3 (4.00-5.60); WHITE BLOOD COUNT 13.5 K/mm3 (4.0-10.0)
[2024-09-16 09:52] LABS: POTASSIUM 4.5 mmol/L (3.5-5.1)
[2024-09-16 09:55] LABS: ALBUMIN 2.2 g/dl (3.4-5.0); BLOOD UREA NITROGEN 24.5 mg/dL (7-18)
[2024-09-16 09:57] LABS: CREATININE 1.6 mg/dL (0.55-1.3)
[2024-09-16 09:59] LABS: BILIRUBIN,TOTAL 0.3 mg/dL (0.2-1); TOT PROT 6.3 g/dl (6.4-8.2)
[2024-09-16] MEDS: MEROPENEM 1 GM in DEXTROSE 5%-WATER 100 ML IVPB SCH (11:54)
[2024-09-16] MEDS: SODIUM HYPOCHLORITE 0.5% 473 ML- BULK BOTTLE TP SCH (12:33)
[2024-09-16] MEDS: MEROPENEM-0.9% SODIUM CHLORIDE 1 GM/50 ML BAG IVPB SCH (16:12)
[2024-09-16] MEDS: INSULIN (NOVOLOG) ASPART 100 UNITS/ML 10ML VIAL SQ SCH (16:12)
[2024-09-16] MEDS ORDERED: INSULIN (NOVOLOG) ASPART 100 UNITS/ML 10ML VIAL SQ SCH (16:30)
[2024-09-16] MEDS ORDERED: SODIUM CHLORIDE 0.45% 1,000 ML IV SCH (18:00)
[2024-09-16] MEDS: SODIUM CHLORIDE 0.45% 1,000 ML IV SCH (19:46)
[2024-09-16] MEDS: POLYETHYLENE GLYCOL (HEALTHYLAX) 3350 17 GM PACKET PO SCH (21:21)
[2024-09-17 08:32] LABS: BASO % 0.6 % (0-2.0); EOS % 2.8 % (0-4.5); HEMATOCRIT 33.2 % (35.4-49); HEMOGLOBIN 10.3 GM/dL (11.7-16.9); LYMPH % 11.7 % (8-40); MCH 26.4 pg (25.7-33.7); MEAN CELL VOLUME 85.1 fl (80-96); MEAN PLT VOLUME 8.5 fl (7.5-11.1); MONO % 7.6 % (3.8-10.2); NEUT % 77.3 % (42.8-82.8); PLATELET COUNT 374 10^3/uL (134-434); WHITE BLOOD COUNT 11.3 K/mm3 (4.0-10.0)
[2024-09-17 09:05] LABS: POTASSIUM 4.2 mmol/L (3.5-5.1)
[2024-09-17 09:21] LABS: ALBUMIN 2.1 g/dl (3.4-5.0); BLOOD UREA NITROGEN 19.4 mg/dL (7-18); CALCIUM 8.8 mg/dL (8.5-10.1)
[2024-09-17 09:22] LABS: MAGNESIUM 2.3 mg/dL (1.8-2.4)
[2024-09-17 09:24] LABS: CREATININE 1.3 mg/dL (0.55-1.3); PHOSPHOROUS 3.4 mg/dL (2.5-4.9)
[2024-09-17 09:26] LABS: TOT PROT 6.1 g/dl (6.4-8.2)
[2024-09-17 09:27] LABS: BILIRUBIN,TOTAL 0.4 mg/dL (0.2-1)
[2024-09-17] MEDS: AMINO ACIDS/PROTEIN HYDROLYS 30 ML LIQUID.PKT PO SCH (09:41)
[2024-09-17] MEDS: TAMSULOSIN HCL 0.4 MG CAP PO SCH (09:42)
[2024-09-17] MEDS: CEFTRIAXONE 2 GM-D5W BAG 2 GM/50 ML BAG IVPB SCH (11:12)
[2024-09-17] MEDS: INSULIN (NOVOLOG) ASPART 100 UNITS/ML 10ML VIAL SQ SCH (11:13)
[2024-09-17] MEDS: INSULIN (LEVEMIR) 100 UNITS/ML UNITS SQ SCH (22:00)
[2024-09-18] MEDS ORDERED: INSULIN ASPART SLIDING SCALE (NOVOLOG) 1 VIAL SQ ONE (07:54)
[2024-09-18 10:49] LABS: BASO % 0.6 % (0-2.0); EOS % 2.1 % (0-4.5); HEMATOCRIT 34.7 % (35.4-49); HEMOGLOBIN 10.7 GM/dL (11.7-16.9); LYMPH % 10.4 % (8-40); MCH 26.2 pg (25.7-33.7); MCHC 30.8 g/dl (32.0-35.9); MEAN CELL VOLUME 85.1 fl (80-96); MEAN PLT VOLUME 8.7 fl (7.5-11.1); MONO % 7.4 % (3.8-10.2); NEUT % 79.5 % (42.8-82.8); PLATELET COUNT 351 10^3/uL (134-434); RBC 4.07 M/mm3 (4.00-5.60); RDW 14.5 % (11.9-15.9); WHITE BLOOD COUNT 11.5 K/mm3 (4.0-10.0)
[2024-09-18 11:08] LABS: POTASSIUM 4.3 mmol/L (3.5-5.1)
[2024-09-18 11:10] LABS: BLOOD UREA NITROGEN 17.2 mg/dL (7-18); MAGNESIUM 2.2 mg/dL (1.8-2.4)
[2024-09-18 11:13] LABS: CREATININE 1.2 mg/dL (0.55-1.3); PHOSPHOROUS 3.4 mg/dL (2.5-4.9)
[2024-09-18] MEDS: INSULIN (NOVOLOG) ASPART 100 UNITS/ML 10ML VIAL SQ SCH (11:13)
[2024-09-18] MEDS: INSULIN (LEVEMIR) 100 UNITS/ML UNITS SQ SCH (22:08)
[2024-09-19] MEDS: VANCOMYCIN 1 GM PREMIX (F) 1 GM/200 ML BAG IVPB SCH (13:34)
[2024-09-19] MEDS: INSULIN (NOVOLOG) ASPART 100 UNITS/ML 10ML VIAL SQ SCH (17:23)
[2024-09-20] MEDS ORDERED: VANCOMYCIN 1 GM PREMIX (F) 1 GM/200 ML BAG IVPB SCH (01:00)
[2024-09-20 09:54] LABS: BASO % 0.4 % (0-2.0); EOS % 1.7 % (0-4.5); HEMOGLOBIN 10.6 GM/dL (11.7-16.9); LYMPH % 14.3 % (8-40); MCH 26.8 pg (25.7-33.7); MEAN CELL VOLUME 83.6 fl (80-96); MEAN PLT VOLUME 8.4 fl (7.5-11.1); MONO % 8.6 % (3.8-10.2); PLATELET COUNT 348 10^3/uL (134-434); RBC 3.95 M/mm3 (4.00-5.60); RDW 14.9 % (11.9-15.9)
[2024-09-20 10:07] LABS: POTASSIUM 4.1 mmol/L (3.5-5.1)
[2024-09-20 10:13] LABS: ALBUMIN 2.2 g/dl (3.4-5.0); BLOOD UREA NITROGEN 14.9 mg/dL (7-18); CALCIUM 9.1 mg/dL (8.5-10.1)
[2024-09-20 10:14] LABS: MAGNESIUM 2.1 mg/dL (1.8-2.4)
[2024-09-20 10:16] LABS: CREATININE 1.2 mg/dL (0.55-1.3)
[2024-09-20 10:17] LABS: PHOSPHOROUS 3.7 mg/dL (2.5-4.9)
[2024-09-20 10:18] LABS: BILIRUBIN,TOTAL 0.4 mg/dL (0.2-1)
[2024-09-20 11:52] LABS: TOT PROT 6.6 g/dl (6.4-8.2)
[2024-09-20] MEDS ORDERED: MIDAZOLAM HCL 2 MG/2 ML SINGLE DOSE VIAL ONE (14:23)
[2024-09-20] MEDS ORDERED: HEPARIN NA (PORCINE) 5,000 UNITS/ML 1ML VIAL ONE (14:29)
[2024-09-20] MEDS ORDERED: LIDOCAINE HCL 1%, 10 MG/ML (20ML VIAL) ONE (14:29)
[2024-09-20] MEDS: LIDOCAINE HCL 1%, 10 MG/ML (20ML VIAL) NR ONE ×2 (15:35)
[2024-09-20] MEDS ORDERED: ONDANSETRON 4 MG/2 ML VIAL IVPUSH PRN ×2 (16:48→17:15)
[2024-09-20] MEDS ORDERED: LACTATED RINGERS SOLUTION 1,000 ML IV SCH ×2 (17:00→17:15)
[2024-09-20] MEDS ORDERED: GABAPENTIN 300 MG CAPSULE PO PRN (17:15)
[2024-09-20] MEDS: AMINO ACIDS/PROTEIN HYDROLYS 30 ML LIQUID.PKT PO SCH (17:41)
[2024-09-20] MEDS: POLYETHYLENE GLYCOL (HEALTHYLAX) 3350 17 GM PACKET PO SCH (21:31)
[2024-09-20] MEDS: INSULIN ASPART SLIDING SCALE (NOVOLOG) 1 VIAL SQ SCH (21:31)
[2024-09-20] MEDS: HEPARIN NA (PORCINE) 5,000 UNITS/ML 1ML VIAL SQ SCH (21:31)
[2024-09-21] MEDS: VANCOMYCIN/WATER FOR INJ (PEG) 1 GM/200 ML BAG IVPB SCH (01:23)
[2024-09-21] MEDS: TAMSULOSIN HCL 0.4 MG CAP PO SCH (08:55)
[2024-09-21 09:38] LABS: BASO % 0.3 % (0-2.0); EOS % 2.7 % (0-4.5); HEMATOCRIT 32.1 % (35.4-49); HEMOGLOBIN 10.6 GM/dL (11.7-16.9); LYMPH % 14.2 % (8-40); MCH 27.3 pg (25.7-33.7); MCHC 32.9 g/dl (32.0-35.9); MEAN CELL VOLUME 82.9 fl (80-96); MEAN PLT VOLUME 8.6 fl (7.5-11.1); MONO % 7.4 % (3.8-10.2); NEUT % 75.4 % (42.8-82.8); PLATELET COUNT 399 10^3/uL (134-434); RBC 3.87 M/mm3 (4.00-5.60); WHITE BLOOD COUNT 8.4 K/mm3 (4.0-10.0)
[2024-09-21 09:48] LABS: POTASSIUM 4.4 mmol/L (3.5-5.1)
[2024-09-21 09:56] LABS: CALCIUM 9.2 mg/dL (8.5-10.1)
[2024-09-21 09:57] LABS: ALBUMIN 2.3 g/dl (3.4-5.0); BLOOD UREA NITROGEN 14.8 mg/dL (7-18); MAGNESIUM 2.2 mg/dL (1.8-2.4)
[2024-09-21 10:00] LABS: CREATININE 1.4 mg/dL (0.55-1.3); PHOSPHOROUS 3.7 mg/dL (2.5-4.9)
[2024-09-21 10:01] LABS: BILIRUBIN,TOTAL 0.4 mg/dL (0.2-1)
[2024-09-21] MEDS: LOSARTAN POTASSIUM 50 MG TABLET PO SCH (10:33)
[2024-09-21] MEDS: SODIUM HYPOCHLORITE 0.5% 473 ML- BULK BOTTLE TP SCH (10:34)
[2024-09-21] MEDS: amLODIPine BESYLATE 5 MG TABLET (FP) PO SCH (10:34)
[2024-09-21] MEDS: CEFTRIAXONE 2 GM-D5W BAG 2 GM/50 ML BAG IVPB SCH (10:34)
[2024-09-21] MEDS: INSULIN (LEVEMIR) 100 UNITS/ML UNITS SQ SCH (10:40)
[2024-09-21] MEDS ORDERED: LIDOCAINE HCL 2% (20ML MULTI-DOSE VIAL) ONE (12:06)
[2024-09-21] MEDS ORDERED: BUPIVACAINE HCL/PF 0.5% (5MG/ML) 10 ML VIAL ONE ×2 (12:06→12:07)
[2024-09-21] MEDS ORDERED: ACETAMINOPHEN INJECTION 100 ML ONE (12:07)
[2024-09-21] MEDS ORDERED: LIDOCAINE HCL 1%, 10 MG/ML (20ML VIAL) ONE (12:32)
[2024-09-21] MEDS ORDERED: VANCOMYCIN 1 GM PREMIX (F) 1 GM/200 ML BAG IVPB SCH (13:00)
[2024-09-21] MEDS ORDERED: VANCOMYCIN/WATER FOR INJ (PEG) 1 GM/200 ML BAG IVPB SCH (13:00)
[2024-09-21] MEDS: LIDOCAINE HCL 1%, 10 MG/ML (50 mL VIAL) INF ONE ×2 (13:27)
[2024-09-21] MEDS ORDERED: GABAPENTIN 300 MG CAPSULE PO PRN (14:55)
[2024-09-21] MEDS: AMINO ACIDS/PROTEIN HYDROLYS 30 ML LIQUID.PKT PO SCH (17:23)
[2024-09-21] MEDS: INSULIN ASPART SLIDING SCALE (NOVOLOG) 1 VIAL SQ SCH (17:23)
[2024-09-21] MEDS: POLYETHYLENE GLYCOL (HEALTHYLAX) 3350 17 GM PACKET PO SCH (21:31)
[2024-09-21] MEDS: HEPARIN NA (PORCINE) 5,000 UNITS/ML 1ML VIAL SQ SCH (21:32)
[2024-09-22] MEDS ORDERED: VANCOMYCIN 1 GM PREMIX (F) 1 GM/200 ML BAG IVPB SCH (01:00)
[2024-09-22] MEDS: INSULIN (LEVEMIR) 100 UNITS/ML UNITS SQ SCH ×2 (06:29→21:36)
[2024-09-22 08:52] LABS: BASO % 0.3 % (0-2.0); HEMATOCRIT 29.9 % (35.4-49); HEMOGLOBIN 9.7 GM/dL (11.7-16.9); LYMPH % 13.9 % (8-40); MCHC 32.5 g/dl (32.0-35.9); MEAN CELL VOLUME 83.1 fl (80-96); MEAN PLT VOLUME 8.4 fl (7.5-11.1); MONO % 9.6 % (3.8-10.2); NEUT % 74.2 % (42.8-82.8); PLATELET COUNT 358 10^3/uL (134-434); RDW 14.6 % (11.9-15.9)
[2024-09-22] MEDS: amLODIPine BESYLATE 5 MG TABLET (FP) PO SCH (09:05)
[2024-09-22] MEDS: CEFTRIAXONE 2 GM-D5W BAG 2 GM/50 ML BAG IVPB SCH (09:05)
[2024-09-22] MEDS: TAMSULOSIN HCL 0.4 MG CAP PO SCH (09:05)
[2024-09-22] MEDS: LOSARTAN POTASSIUM 50 MG TABLET PO SCH (09:05)
[2024-09-22] MEDS: SODIUM HYPOCHLORITE 0.5% 473 ML- BULK BOTTLE TP SCH (09:06)
[2024-09-22 09:15] LABS: POTASSIUM 4.2 mmol/L (3.5-5.1)
[2024-09-22 09:33] LABS: CALCIUM 9.2 mg/dL (8.5-10.1)
[2024-09-22 09:34] LABS: ALBUMIN 2.3 g/dl (3.4-5.0); BLOOD UREA NITROGEN 16.6 mg/dL (7-18); MAGNESIUM 2.3 mg/dL (1.8-2.4)
[2024-09-22 09:37] LABS: CREATININE 1.5 mg/dL (0.55-1.3)
[2024-09-22 09:38] LABS: BILIRUBIN,TOTAL 0.4 mg/dL (0.2-1); TOT PROT 6.9 g/dl (6.4-8.2)
[2024-09-22] MEDS: ASPIRIN COATED 81 MG TABLET.EC PO SCH (10:13)
[2024-09-22] MEDS ORDERED: ACETAMINOPHEN 1000 MG/100 ML BAG IVPB PRN ×2 (10:51→10:56)
[2024-09-22] MEDS: GABAPENTIN 300 MG CAPSULE PO SCH (21:36)
[2024-09-23 09:17] LABS: BASO % 0.5 % (0-2.0); EOS % 2.7 % (0-4.5); HEMATOCRIT 30.4 % (35.4-49); HEMOGLOBIN 9.7 GM/dL (11.7-16.9); LYMPH % 20.1 % (8-40); MCH 26.8 pg (25.7-33.7); MCHC 31.8 g/dl (32.0-35.9); MEAN CELL VOLUME 84.4 fl (80-96); MEAN PLT VOLUME 9.4 fl (7.5-11.1); NEUT % 67.7 % (42.8-82.8); PLATELET COUNT 354 10^3/uL (134-434); RBC 3.61 M/mm3 (4.00-5.60); RDW 14.9 % (11.9-15.9); WHITE BLOOD COUNT 8.2 K/mm3 (4.0-10.0)
[2024-09-23] MEDS: oxyCODONE HCL 5 MG TABLET PO PRN (09:20)
[2024-09-23 09:46] LABS: POTASSIUM 4.6 mmol/L (3.5-5.1)
[2024-09-23 10:01] LABS: ALBUMIN 2.4 g/dl (3.4-5.0)
[2024-09-23 10:03] LABS: BLOOD UREA NITROGEN 18.7 mg/dL (7-18); CALCIUM 9.1 mg/dL (8.5-10.1); MAGNESIUM 2.3 mg/dL (1.8-2.4)
[2024-09-23 10:06] LABS: CREATININE 1.4 mg/dL (0.55-1.3); PHOSPHOROUS 4.2 mg/dL (2.5-4.9); TOT PROT 6.8 g/dl (6.4-8.2)
[2024-09-23 10:09] LABS: BILIRUBIN,TOTAL 0.2 mg/dL (0.2-1)
[2024-09-23] MEDS ORDERED: oxyCODONE HCL 5 MG TABLET PO PRN (18:57)
[2024-09-23] MEDS: INSULIN ASPART SLIDING SCALE (NOVOLOG) 1 VIAL SQ SCH (23:58)
[2024-09-24 09:57] LABS: BASO % 0.5 % (0-2.0); EOS % 3.1 % (0-4.5); HEMATOCRIT 30.1 % (35.4-49); HEMOGLOBIN 9.3 GM/dL (11.7-16.9); LYMPH % 19.7 % (8-40); MCH 26.4 pg (25.7-33.7); MCHC 30.8 g/dl (32.0-35.9); MEAN CELL VOLUME 85.6 fl (80-96); MEAN PLT VOLUME 8.4 fl (7.5-11.1); MONO % 7.2 % (3.8-10.2); NEUT % 69.5 % (42.8-82.8); PLATELET COUNT 305 10^3/uL (134-434); RBC 3.52 M/mm3 (4.00-5.60); RDW 14.8 % (11.9-15.9); WHITE BLOOD COUNT 7.8 K/mm3 (4.0-10.0)
[2024-09-24 10:18] LABS: CHLORIDE 104 mmol/L (98-107); POTASSIUM 4.4 mmol/L (3.5-5.1); SODIUM 139 mmol/L (136-145)
[2024-09-24 10:22] LABS: ALBUMIN 2.2 g/dl (3.4-5.0); ANION GAP 7 mmol/L (4-13); BLOOD UREA NITROGEN 23.4 mg/dL (7-18); CALCIUM 8.8 mg/dL (8.5-10.1); CO2 28 mmol/L (21-32); MAGNESIUM 2.3 mg/dL (1.8-2.4)
[2024-09-24 10:25] LABS: SGOT/AST 15 U/L (15-37); SGPT/ALT 24 U/L (13-61)
[2024-09-24 10:26] LABS: CREATININE 1.4 mg/dL (0.55-1.3); PHOSPHOROUS 3.8 mg/dL (2.5-4.9)
[2024-09-24 10:28] LABS: BILIRUBIN,TOTAL 0.2 mg/dL (0.2-1); GLUCOSE,RANDOM 410 mg/dL (74-106); TOT PROT 6.5 g/dl (6.4-8.2)
[2024-09-24 10:29] LABS: ALK PHOS 136 U/L (45-117)
[2024-09-24] MEDS ORDERED: INSULIN (LEVEMIR) 100 UNITS/ML UNITS SQ SCH (12:19)
[2024-09-24] MEDS: ACETAMINOPHEN 325 MG TABLET (FP) PO SCH (12:32)
[2024-09-24] MEDS: INSULIN (LEVEMIR) 100 UNITS/ML UNITS SQ ONE (14:09)
[2024-09-24] MEDS: INSULIN (NOVOLOG) ASPART 100 UNITS/ML 10ML VIAL SQ ONE (17:11)
[2024-09-24] MEDS: oxyCODONE HCL 5 MG TABLET PO SCH (21:28)
[2024-09-24] MEDS: INSULIN (LEVEMIR) 100 UNITS/ML UNITS SQ SCH (21:29)
[2024-09-25] MEDS: INSULIN (LEVEMIR) 100 UNITS/ML UNITS SQ SCH (06:13)
[2024-09-25 09:17] LABS: POTASSIUM 4.6 mmol/L (3.5-5.1)
[2024-09-25 09:25] LABS: ALBUMIN 2.2 g/dl (3.4-5.0)
[2024-09-25 09:26] LABS: MAGNESIUM 2.4 mg/dL (1.8-2.4)
[2024-09-25 09:29] LABS: CREATININE 1.5 mg/dL (0.55-1.3)
[2024-09-25 09:30] LABS: BILIRUBIN,TOTAL 0.2 mg/dL (0.2-1); TOT PROT 6.6 g/dl (6.4-8.2)
[2024-09-25 09:43] LABS: BASO % 0.3 % (0-2.0); EOS % 2.6 % (0-4.5); HEMOGLOBIN 9.2 GM/dL (11.7-16.9); LYMPH % 18.7 % (8-40); MCH 26.6 pg (25.7-33.7); MCHC 31.8 g/dl (32.0-35.9); MEAN CELL VOLUME 83.6 fl (80-96); MEAN PLT VOLUME 8.9 fl (7.5-11.1); MONO % 7.4 % (3.8-10.2); PLATELET COUNT 306 10^3/uL (134-434); RBC 3.47 M/mm3 (4.00-5.60); RDW 14.8 % (11.9-15.9); WHITE BLOOD COUNT 7.6 K/mm3 (4.0-10.0)
[2024-09-25] MEDS: INSULIN (NOVOLOG) ASPART 100 UNITS/ML 10ML VIAL SQ SCH (16:29)
[2024-09-25] MEDS ORDERED: INSULIN (LEVEMIR) 100 UNITS/ML UNITS SQ SCH ×2 (16:49→17:49)
[2024-09-25 17:23] LABS: CHLORIDE 100 mmol/L (98-107); POTASSIUM 5.1 mmol/L (3.5-5.1); SODIUM 134 mmol/L (136-145)
[2024-09-25 17:25] LABS: CALCIUM 8.8 mg/dL (8.5-10.1)
[2024-09-25 17:26] LABS: ALBUMIN 2.2 g/dl (3.4-5.0); ANION GAP 6 mmol/L (4-13); BLOOD UREA NITROGEN 32.4 mg/dL (7-18); CO2 28 mmol/L (21-32)
[2024-09-25 17:29] LABS: CREATININE 1.7 mg/dL (0.55-1.3); SGOT/AST 19 U/L (15-37); SGPT/ALT 25 U/L (13-61)
[2024-09-25 17:31] LABS: BILIRUBIN,TOTAL 0.2 mg/dL (0.2-1)
[2024-09-25 17:32] LABS: ALK PHOS 137 U/L (45-117)
[2024-09-25 17:36] LABS: GLUCOSE,RANDOM 439 mg/dL (74-106)
[2024-09-25] MEDS: INSULIN (NOVOLOG) ASPART 100 UNITS/ML 10ML VIAL SQ ONE (17:54)
[2024-09-25] MEDS: SODIUM CHLORIDE 1,000 ML IV SCH (21:08)
[2024-09-26] MEDS: INSULIN (NOVOLOG) ASPART 100 UNITS/ML 10ML VIAL SQ SCH (06:13)
[2024-09-26] MEDS: INSULIN (LEVEMIR) 100 UNITS/ML UNITS SQ SCH (06:14)
[2024-09-26] MEDS: INSULIN ASPART SLIDING SCALE (NOVOLOG) 1 VIAL SQ SCH (06:14)
[2024-09-26] MEDS: CEFTRIAXONE 2 GM in SODIUM CHLORIDE 100 ML IVPB SCH (09:22)
[2024-09-26] MEDS ORDERED: INSULIN ASPART SLIDING SCALE (NOVOLOG) 1 VIAL SQ ONE (10:12)
[2024-09-26] MEDS: oxyCODONE HCL 5 MG TABLET PO SCH (13:28)
[2024-09-26 14:31] LABS: POTASSIUM 5.8 mmol/L (3.5-5.1)
[2024-09-26 14:32] LABS: CALCIUM 9.3 mg/dL (8.5-10.1)
[2024-09-26 14:33] LABS: BLOOD UREA NITROGEN 27.7 mg/dL (7-18)
[2024-09-26 14:36] LABS: CREATININE 1.4 mg/dL (0.55-1.3)
[2024-09-27] MEDS ORDERED: INSULIN (LEVEMIR) 100 UNITS/ML UNITS SQ ONE (06:44)
[2024-09-27] MEDS ORDERED: INSULIN ASPART SLIDING SCALE (NOVOLOG) 1 VIAL SQ ONE (06:44)
[2024-09-27 09:25] LABS: BASO % 0.8 % (0-2.0); HEMATOCRIT 29.9 % (35.4-49); HEMOGLOBIN 9.6 GM/dL (11.7-16.9); LYMPH % 24.2 % (8-40); MCH 27.1 pg (25.7-33.7); MEAN CELL VOLUME 84.7 fl (80-96); MEAN PLT VOLUME 8.7 fl (7.5-11.1); MONO % 7.9 % (3.8-10.2); NEUT % 64.1 % (42.8-82.8); PLATELET COUNT 327 10^3/uL (134-434); RBC 3.53 M/mm3 (4.00-5.60); RDW 14.8 % (11.9-15.9); WHITE BLOOD COUNT 7.4 K/mm3 (4.0-10.0)
[2024-09-27 09:41] LABS: POTASSIUM 4.6 mmol/L (3.5-5.1)
[2024-09-27 09:56] LABS: CALCIUM 9.3 mg/dL (8.5-10.1)
[2024-09-27 09:57] LABS: ALBUMIN 2.2 g/dl (3.4-5.0); BLOOD UREA NITROGEN 25.1 mg/dL (7-18); MAGNESIUM 2.4 mg/dL (1.8-2.4)
[2024-09-27 09:59] LABS: CREATININE 1.5 mg/dL (0.55-1.3)
[2024-09-27 10:00] LABS: PHOSPHOROUS 4.2 mg/dL (2.5-4.9)
[2024-09-27] MEDS ORDERED: COLLAGENASE CLOSTRIDIUM HIST. 30 GRAMS TUBE TP SCH (10:00)
[2024-09-27 10:01] LABS: BILIRUBIN,TOTAL 0.1 mg/dL (0.2-1)
[2024-09-27 10:02] LABS: TOT PROT 6.8 g/dl (6.4-8.2)
[2024-09-27] MEDS: COLLAGENASE CLOSTRIDIUM HIST. 30 GRAMS TUBE TP SCH (10:40)
[2024-09-27 22:14] VITALS: BP 126/54; PULSE 75; RESP 18; TEMP 98.4
[2024-09-27] MEDS ORDERED: INSULIN (LEVEMIR) 100 UNITS/ML UNITS SQ SCH (22:48)
== END 2024-09-27 22:00 | DRG 853 ==
LOC: JER 17:53 → JERBED 19:56 → J6S 09-15 14:30
PROVIDERS: ADMIT Internal Medicine; ATTEND Internal Medicine
PROC: 0Y6X0Z0 Detachment at Right 5th Toe, Complete, Open Approach (ICD-10-PCS; principal; 2024-09-15 09:30)
PROC: B41DZZZ Fluoroscopy of Aorta and Bilateral Lower Extremity Arteries (ICD-10-PCS; 2024-09-20)
PROC: 0YHH33Z Insertion of Infusion Device into Right Lower Leg, Percutaneous Approach (ICD-10-PCS; 2024-09-20)
PROC: 0JBQ0ZZ Excision of Right Foot Subcutaneous Tissue and Fascia, Open Approach (ICD-10-PCS; 2024-09-21)
PROC: 0Y6V0Z0 Detachment at Right 4th Toe, Complete, Open Approach (ICD-10-PCS; 2024-09-21)
DX: A41.81 Sepsis due to Enterococcus (principal); A48.0 Gas gangrene; I69.351 Hemiplegia and hemiparesis following cerebral infarction affecting right dominant side; E11.52 Type 2 diabetes mellitus with diabetic peripheral angiopathy with gangrene; M86.9 Osteomyelitis, unspecified; N17.9 Acute kidney failure, unspecified; E11.621 Type 2 diabetes mellitus with foot ulcer; I12.9 Hypertensive chronic kidney disease with stage 1 through stage 4 chronic kidney disease, or unspecified chronic kidney disease; E11.69 Type 2 diabetes mellitus with other specified complication; E11.22 Type 2 diabetes mellitus with diabetic chronic kidney disease; E11.65 Type 2 diabetes mellitus with hyperglycemia; N18.9 Chronic kidney disease, unspecified; N40.0 Benign prostatic hyperplasia without lower urinary tract symptoms; E78.5 Hyperlipidemia, unspecified
CPT/HCPCS: 0241U-QW; 36415; 36600; 73630-TC-RT-FY; 73660-TC-FY; 76000-TC-FY; 76775-TC; 80048; 80053; 81003; 82010; 82550; 82803; 82962; 83036; 83540; 83550; 83735; 84100; 85025; 85045; 85610; 85651; 85730; 86140; 86850; 86900; 86901; 87040; 87070; 87086; 87186; 87205; 88307-TC; 88311-TC; 93005; 93010; 93922; 93925-TC; 94760; 99285-25; C1760; C1769; G0480; J0131; J0878; J1644

== ENCOUNTER 2024-10-12 09:54 | Inpatient (IN) | payer OTHER ==
[2024-10-12] MEDS ORDERED: NALOXONE HCL 0.4 MG/ML VIAL ONE (10:15)
[2024-10-12] MEDS: NALOXONE HCL 0.4 MG/ML VIAL IVPUSH ONE (10:22)
[2024-10-12] MEDS ORDERED: ACETAMINOPHEN INJECTION 100 ML ONE (10:52)
[2024-10-12] MEDS: LACTATED RINGERS SOLUTION 1,000 ML/1,000 ML INFUS.BAG IV STA ×2 (10:55→12:45)
[2024-10-12] MEDS: ACETAMINOPHEN 1000 MG/100 ML BAG IVPB ONE (10:55)
[2024-10-12 11:12] LABS: BASO % 0.6 % (0-2.0); EOS % 2.2 % (0-4.5); HEMATOCRIT 34.6 % (35.4-49); HEMOGLOBIN 10.9 GM/dL (11.7-16.9); LYMPH % 8.8 % (8-40); MCH 26.9 pg (25.7-33.7); MCHC 31.4 g/dl (32.0-35.9); MEAN CELL VOLUME 85.7 fl (80-96); MEAN PLT VOLUME 9.1 fl (7.5-11.1); MONO % 8.5 % (3.8-10.2); NEUT % 79.9 % (42.8-82.8); PLATELET COUNT 353 10^3/uL (134-434); RBC 4.04 M/mm3 (4.00-5.60); RDW 16.1 % (11.9-15.9); WHITE BLOOD COUNT 9.5 K/mm3 (4.0-10.0)
[2024-10-12 11:13] LABS: VENOUS BASE EXCESS -2.3 mmol/L (-2-2); VENOUS O2 SATURATION 29.9 % (70-80); VENOUS PCO2 53.4 mmHg (38-52); VENOUS PH 7.285 (7.310-7.410)
[2024-10-12 11:17] LABS: EPI CELLS 20 /uL (0-25.1); HYALINE CASTS 3 /uL (0-3.1); PH,URINE 5.5 (5.0-8.0); URINE APPEARANCE TURBID; URINE BACTERIA 45 /uL (0-1359); URINE BILIRUBIN NEGATIVE (NEGATIVE); URINE COLOR YELLOW; URINE GLUCOSE (UA) 2+ (NEGATIVE); URINE KETONE NEGATIVE (NEGATIVE); URINE LEUK ESTERASE 3+ (NEGATIVE); URINE NITRITE NEGATIVE (NEGATIVE); URINE PROTEIN 2+ (NEGATIVE); URINE UROBILINOGEN 0.2 mg/dL (0.2-1.0); URINE WBC 24069 /uL (0-25.8)
[2024-10-12 11:23] LABS: INR 1.26 (0.83-1.09); PROTHROMBIN TIME (PATIENT) 13.7 SEC (9.7-13.0)
[2024-10-12 11:26] LABS: ACTIVATED PTT 32.3 SECONDS (25.2-36.5)
[2024-10-12 11:31] LABS: POTASSIUM 4.8 mmol/L (3.5-5.1)
[2024-10-12 11:33] LABS: ALBUMIN 2.6 g/dl (3.4-5.0); CALCIUM 9.7 mg/dL (8.5-10.1)
[2024-10-12 11:34] LABS: BLOOD UREA NITROGEN 44.5 mg/dL (7-18)
[2024-10-12 11:37] LABS: CREATININE 2.1 mg/dL (0.55-1.3)
[2024-10-12 11:38] LABS: BILIRUBIN,TOTAL 0.2 mg/dL (0.2-1); TOT PROT 8.1 g/dl (6.4-8.2)
[2024-10-12 11:44] LABS: URINE RBC 400.5 /uL (0-23.9); YEAST POSITIVE (NEGATIVE)
[2024-10-12] MEDS ORDERED: VANCOMYCIN HCL 1,500 MG in DEXTROSE 5%-WATER - 500 ML IVPB ONE (11:55)
[2024-10-12] MEDS ORDERED: ERTAPENEM SODIUM 1 GM VIAL ONE (12:36)
[2024-10-12] MEDS ORDERED: GABAPENTIN 300 MG CAPSULE PO PRN (13:40)
[2024-10-12] MEDS ORDERED: POLYETHYLENE GLYCOL (HEALTHYLAX) 3350 17 GM PACKET PO PRN (13:40)
[2024-10-12] MEDS: ERTAPENEM SODIUM 1 GM in SODIUM CHLORIDE 50 ML IVPB ONE (13:41)
[2024-10-12 17:00] VITALS: BMI 20.3
[2024-10-12] MEDS: VANCOMYCIN HCL IN 5 % DEXTROSE 1,500 MG/300 ML BAG IVPB ONE (17:41)
[2024-10-12] MEDS: LACTATED RINGERS SOLUTION 1,000 ML/1,000 ML INFUS.BAG IV SCH (17:42)
[2024-10-12] MEDS: INSULIN ASPART SLIDING SCALE (NOVOLOG) 1 VIAL SQ SCH (18:28)
[2024-10-12] MEDS: HEPARIN NA (PORCINE) 5,000 UNITS/ML 1ML VIAL SQ SCH (21:25)
[2024-10-12] MEDS: INSULIN (LEVEMIR) 100 UNITS/ML UNITS SQ SCH (21:26)
[2024-10-13] MEDS: oxyCODONE HCL 5 MG TABLET PO PRN (04:52)
[2024-10-13 08:10] LABS: BASO % 0.5 % (0-2.0); EOS % 4.3 % (0-4.5); HEMATOCRIT 32.3 % (35.4-49); HEMOGLOBIN 10.1 GM/dL (11.7-16.9); MCH 26.4 pg (25.7-33.7); MCHC 31.3 g/dl (32.0-35.9); MEAN CELL VOLUME 84.3 fl (80-96); MEAN PLT VOLUME 8.4 fl (7.5-11.1); MONO % 8.6 % (3.8-10.2); NEUT % 72.6 % (42.8-82.8); PLATELET COUNT 347 10^3/uL (134-434); RBC 3.83 M/mm3 (4.00-5.60); RDW 15.9 % (11.9-15.9); WHITE BLOOD COUNT 8.3 K/mm3 (4.0-10.0)
[2024-10-13 08:31] LABS: POTASSIUM 4.6 mmol/L (3.5-5.1)
[2024-10-13 08:36] LABS: CALCIUM 9.5 mg/dL (8.5-10.1)
[2024-10-13 08:41] LABS: CREATININE 1.3 mg/dL (0.55-1.3)
[2024-10-13] MEDS: amLODIPine BESYLATE 5 MG TABLET (FP) PO SCH (10:05)
[2024-10-13] MEDS: ASPIRIN COATED 81 MG TABLET.EC PO SCH (10:05)
[2024-10-13] MEDS: ACETAMINOPHEN 325 MG TABLET (FP) PO PRN (10:06)
[2024-10-13] MEDS: TAMSULOSIN HCL 0.4 MG CAP PO SCH (10:06)
[2024-10-13] MEDS: ACETAMINOPHEN 325 MG TABLET (FP) PO SCH (10:08)
[2024-10-13] MEDS: CEFTRIAXONE 2 GM-D5W BAG 2 GM/50 ML BAG IVPB SCH (14:28)
[2024-10-13] MEDS: GABAPENTIN 100 MG CAPSULE PO SCH (14:28)
[2024-10-13] MEDS: LIDOCAINE 5% TOPICAL PATCH TP SCH (17:43)
[2024-10-13] MEDS: LIDOCAINE PATCH REMOVAL MC SCH (22:19)
[2024-10-14 08:10] LABS: POTASSIUM 4.8 mmol/L (3.5-5.1)
[2024-10-14 08:13] LABS: CALCIUM 8.8 mg/dL (8.5-10.1)
[2024-10-14 08:14] LABS: ALBUMIN 2.3 g/dl (3.4-5.0); BLOOD UREA NITROGEN 21.5 mg/dL (7-18); MAGNESIUM 2.6 mg/dL (1.8-2.4)
[2024-10-14 08:17] LABS: CREATININE 1.3 mg/dL (0.55-1.3)
[2024-10-14 08:18] LABS: BILIRUBIN,TOTAL 0.4 mg/dL (0.2-1); TOT PROT 7.3 g/dl (6.4-8.2)
[2024-10-14 08:22] LABS: BASO % 0.6 % (0-2.0); EOS % 2.1 % (0-4.5); HEMATOCRIT 33.4 % (35.4-49); HEMOGLOBIN 10.6 GM/dL (11.7-16.9); LYMPH % 14.6 % (8-40); MCH 26.8 pg (25.7-33.7); MCHC 31.7 g/dl (32.0-35.9); MEAN CELL VOLUME 84.7 fl (80-96); MONO % 7.4 % (3.8-10.2); NEUT % 75.3 % (42.8-82.8); PLATELET COUNT 367 10^3/uL (134-434); RBC 3.95 M/mm3 (4.00-5.60); RDW 15.9 % (11.9-15.9); WHITE BLOOD COUNT 9.8 K/mm3 (4.0-10.0)
[2024-10-14 22:38] VITALS: RESP 18
[2024-10-15 02:31] VITALS: PULSE 78
[2024-10-15 08:38] LABS: BASO % 0.6 % (0-2.0); EOS % 2.5 % (0-4.5); HEMATOCRIT 33.5 % (35.4-49); HEMOGLOBIN 10.7 GM/dL (11.7-16.9); LYMPH % 14.6 % (8-40); MCH 26.8 pg (25.7-33.7); MCHC 32.1 g/dl (32.0-35.9); MEAN CELL VOLUME 83.7 fl (80-96); MEAN PLT VOLUME 8.6 fl (7.5-11.1); MONO % 7.4 % (3.8-10.2); NEUT % 74.9 % (42.8-82.8); PLATELET COUNT 351 10^3/uL (134-434); RDW 15.6 % (11.9-15.9); WHITE BLOOD COUNT 9.7 K/mm3 (4.0-10.0)
[2024-10-15 09:00] LABS: POTASSIUM 4.6 mmol/L (3.5-5.1)
[2024-10-15 09:10] LABS: ALBUMIN 2.3 g/dl (3.4-5.0); CALCIUM 8.7 mg/dL (8.5-10.1)
[2024-10-15 09:11] LABS: BLOOD UREA NITROGEN 17.4 mg/dL (7-18); MAGNESIUM 2.5 mg/dL (1.8-2.4)
[2024-10-15 09:14] LABS: CREATININE 1.3 mg/dL (0.55-1.3)
[2024-10-15 09:15] LABS: BILIRUBIN,TOTAL 0.3 mg/dL (0.2-1)
[2024-10-15 13:18] VITALS: BP 159/76; TEMP 98
== END 2024-10-15 13:45 | DRG 637 ==
LOC: JER 09:54 → JERBED 13:01 → J8W 16:10
PROVIDERS: ADMIT Internal Medicine; ATTEND Nurse Practitioner Family
PROC: 02HV33Z Insertion of Infusion Device into Superior Vena Cava, Percutaneous Approach (ICD-10-PCS; principal; 2024-10-14)
PROC: B518ZZA Fluoroscopy of Superior Vena Cava, Guidance (ICD-10-PCS; 2024-10-14)
DX: E11.69 Type 2 diabetes mellitus with other specified complication (principal); G93.41 Metabolic encephalopathy; I69.351 Hemiplegia and hemiparesis following cerebral infarction affecting right dominant side; N39.0 Urinary tract infection, site not specified; M86.8X7 Other osteomyelitis, ankle and foot; N17.9 Acute kidney failure, unspecified; E78.5 Hyperlipidemia, unspecified; R00.0 Tachycardia, unspecified; R50.9 Fever, unspecified; Z89.421 Acquired absence of other right toe(s); E11.65 Type 2 diabetes mellitus with hyperglycemia; L89.152 Pressure ulcer of sacral region, stage 2; L89.512 Pressure ulcer of right ankle, stage 2; I12.9 Hypertensive chronic kidney disease with stage 1 through stage 4 chronic kidney disease, or unspecified chronic kidney disease; E11.22 Type 2 diabetes mellitus with diabetic chronic kidney disease; N18.9 Chronic kidney disease, unspecified
CPT/HCPCS: 0241U-QW; 36415; 36569; 70450-TC; 71045-TC-FY; 76775-TC; 80048; 80053; 81003; 82803; 82962; 83036; 83605; 83735; 84484; 85025; 85610; 85730; 86850; 86900; 86901; 87040; 87077; 87086; 93005; 93010; 94010; 99285-25; J0131; J0878; J1644